=== PATIENT | male | born 1970 | race Caucasian/White ===

== ENCOUNTER 2023-08-25 08:37 | Outpatient (REF) | payer MEDICARE, BC, SELFPAY | END 2023-08-25 08:38 | disposition home or self-care (01) | LOC: NFLDREF 08:37 | PROVIDERS: Visit Provider Internal Medicine Addiction Medicine | DX: F11.90 Opioid use, unspecified, uncomplicated (principal) | CPT/HCPCS: 80306 ==

== ENCOUNTER 2023-10-16 19:54 | Inpatient (IN) | payer MEDICARE, BC, SELFPAY ==
[2023-10-16] VITALS (8 sets, daily range): BP systolic 144–171; BP diastolic 86–109; PULSE 92–120; RESP 18; TEMP 36.8–36.9; O2SAT 96–98; BMI 26.6; BMI 25.8
--- NOTE | 2023-10-16 20:11 | ED.GENADULT ---
HPI - General Adult General Time Seen by Provider: 20:11 Date Seen: 10/16/23 Chief complaint: Extremity Pain/Injury, Lower Stated complaint: L swollen knee Time Seen by Provider: 10/16/23 20:11 Source: patient and RN notes reviewed Mode of arrival: ambulatory Limitations: no limitations History of Present Illness HPI narrative: Patient is a very pleasant 53-year-old gentleman with history recently of diagnosis cellulitis left knee who comes to the emergency room for increasing redness and fever chills. Patient notes the onset of redness around his left knee extending on to the lower aspect of the medial distal thigh 4 days ago. Two days ago he was seen by urgent care at which time he was started on antibiotic. He notes that it now he has redness going toward his foot and up his thigh. He has had associated fever and chills but no vomiting. He has no past history of MRSA or diabetes or hard to treat infections. He has never had anything like this in the past. He notes that his calf hurts as well but has no history of DVT. Patient cannot recall any specific injury that may have caused this. Related Data Home Medications Medication Instructions Recorded Confirmed ibuprofen 800 mg tablet 800 mg PO PRN pain 09/23/22 10/14/23 lisinopril 20 mg tablet 20 mg PO 09/23/22 10/14/23 Previous Rx's Medication Instructions Recorded buprenorphine 12 mg-naloxone 3 mg 2 film sublingual DAILY #56 ea 08/25/23 sublingual film cephalexin 500 mg capsule 500 mg PO QID 10 days #40 caps 10/14/23 Allergies Allergy/AdvReac Type Severity Reaction Status Date / Time No Known Allergies Allergy Verified 10/14/23 17:02 Review of Systems Status of ROS: Reports: 10 or more systems reviewed and unremarkable except as noted in History and below Const: Reports: fever, chills and fatigue Resp: Denies: cough GI: Denies: abdominal pain, nausea or vomiting Endo: Reports: fatigue PFSH PFS Medical History Opioid use disorder ?F11.90 - Opioid use, unspecified, uncomplicated (ICD-10) Social History Smoking Status: Former smoker Do you use any of these nicotine containing products: None Second hand tobacco smoke exposure: No How often do you have a drink containing alcohol: never AUDIT-C Alcohol total score: 0 Non-prescribed substance use: denies use Exam Narrative: Exam Narrative: Alert and oriented nontoxic in appearance. Very pleasant gentleman in no acute distress. Heart with regular rate and rhythm and lungs are clear. Examination of the left leg shows well-demarcated erythema extending from the mid aspect of the medial thigh onto the anterior surface of the knee and down the lower leg to the ankle. There is tenderness in the popliteal fossa. There does appear to be circumferential erythema. There is no lymphadenopathy in the left groin. No fluctuance noted on the knee. Moving all extremities. Removal of the sock shows no unusual areas of injury on the foot. Const: Vital Signs, click to edit/add: Vital Signs - 24 hr 10/16/23 20:05 10/16/23 20:57 10/16/23 20:58 Temperature 98.4 F Pulse Rate 115 H 104 H Pulse Rate [Pulse Oximeter] 120 H Respiratory Rate 18 Blood Pressure 171/109 H Blood Pressure [Ri ght Upper Arm] 153/86 H Pulse Oximetry 97 97 98 Oxygen Delivery Me thod Room Air Room Air 10/16/23 21:00 10/16/23 21:01 10/16/23 21:31 Temperature Pulse Rate 103 H 104 H Pulse Rate [Pulse Oximeter] Respiratory Rate Blood Pressure 146/94 H 158/91 H Blood Pressure [Ri ght Upper Arm] Pulse Oximetry 98 98 Oxygen Delivery Me thod Documenting provider has reviewed patient's vital signs: yes Course Course ED Course: At this time differential diagnosis includes but is not limited to cellulitis, underlying abscess, septic joint, DVT. Will place IV and draw labs to include CBC, basic panel, lactate, blood culture, CRP. Will then administer vancomycin as well as Zosyn for treatment of cellulitis. Ultrasound of the lower extremity to rule out DVT has also been ordered. Given failed outpatient antibiotics as well as reports of fever, tachycardia will check lactate to ensure no evidence of sepsis. 1 L of normal saline will be given as well as Toradol for discomfort. Reevaluation(s) Reevaluation #1: White count has been returned at 21 K with a CRP this time pending. Lactate is normal at 1.4. Vital Signs Vital signs: Initial Vital Signs Temperature 98.4 F 10/16/23 20:05 Temperature Source Temporal Artery Scan 10/16/23 20:05 Pulse Rate 120 H 10/16/23 20:05 Respiratory Rate 18 10/16/23 20:05 Blood Pressure 153/86 H 10/16/23 20:05 Blood Pressure Mean 108 H 10/16/23 20:05 Blood Pressure Position Sitting 10/16/23 20:05 Pulse Oximetry 97 10/16/23 20:05 Oxygen Delivery Method Room Air 10/16/23 20:05 Vital Signs Temperature 98.4 F 10/16/23 20:05 Pulse Rate 120 H 10/16/23 20:05 Respiratory Rate 18 10/16/23 20:05 Blood Pressure 153/86 H 10/16/23 20:05 Pulse Oximetry 97 10/16/23 20:05 Oxygen Delivery Method Room Air 10/16/23 20:05 Temperature 98.4 F 10/16/23 20:05 Pulse Rate 104 H 10/16/23 21:01 Respiratory Rate 18 10/16/23 20:05 Blood Pressure 158/91 H 10/16/23 21:31 Pulse Oximetry 98 10/16/23 21:01 Oxygen Delivery Method Room Air 10/16/23 20:57 Medications Administered Medications: Discontinued Medications Generic Name Dose Route Start Last Admin Trade Name Freq PRN Reason Stop Dose Admin Sodium Chloride 1,000 mls @ 1,000 mls/hr 10/16/23 20:18 10/16/23 20:43 0.9 % Sodium Chloride 1000 Ml IV 10/16/23 21:17 1,000 mls/hr .Q1H ANAIS Administration Vancomycin HCl 1,500 mg/ 515 mls @ 257.5 mls/hr 10/16/23 21:01 10/16/23 21:54 Sodium Chloride IVPB 10/16/23 21:02 257.5 mls/hr ONCE ONE Administration Protocol Piperacillin Sod/Tazobactam 100 mls @ 200 mls/hr 10/16/23 21:10/16/23 21:50 Sod 3.375 gm/ Sodium Chloride IVPB 10/16/23 21:02 Infused ONCE ONE Infusion Ketorolac Tromethamine 15 mg 10/16/23 20:18 10/16/23 20:43 Ketorolac 15 Mg/Ml Inj IVP 10/16/23 20:19 15 mg ONCE ONE Administration Medical Decision Making MDM Narrative Medical decision making narrative: 1. Cellulitis-elevated white count at 21,000 with failed outpatient antibiotics. Patient will be admitted to the hospital. I have ordered a course of vancomycin as well as Zosyn. An ultrasound of the leg shows no evidence of an underlying DVT. 2. Leg pain-patient noted to have a history of narcotic abuse currently on Suboxone. Patient given Toradol. He seems much more comfortable. 3. Disposition-admission under the care of Dr. Welsh, hospitalist. Medical Records Medical records reviewed: Yes I reviewed the patient's medical records Lab Data Lab results reviewed: Yes I reviewed the patient's lab results Labs: Lab Results 10/16/23 Range/Units 20:30 WBC 21.31 H (4.50-11.00) K/uL RBC 4.52 (4.30-5.90) m/uL Hgb 12.4 L (13.5-17.5) gm/dL Hct 38.4 (37.0-53.0) % MCV 85 (80-100) fL MCH 27 (26-34) pg MCHC 32 (32-36) gm/dL RDW Coeff of Ruma 13.5 (11.5-15.5) % Plt Count 249 (140-440) K/uL Neut % (Auto) 87.3 H (42.0-72.0) % Lymph % (Auto) 5.2 L (20-44) % [place] % (Auto) 6.1 (0.0-11.0) % Eos % (Auto) 0.0 (0.0-7.0) % Baso % (Auto) 0.0 (0.0-3.0) % Neut # (Auto) 18.60 H (1.7-7.0) K/uL Lymph # (Auto) 1.10 (0.90-2.90) K/uL [place] # (Auto) 1.30 H (0.00-0.90) K/UL Eos # (Auto) 0.00 (0.00-0.50) K/uL Baso # (Auto) 0.00 (0.00-0.30) K/uL Abs Immat Gran (auto) 0.30 (0.00-0.30) K/uL Imm/Tot Granulo (auto) 1.4 % Sodium 137 (135-149) mmol/L Potassium 3.5 L (3.6-5.1) mmol/L Chloride 101 (96-114) mmol/L Carbon Dioxide 26 (20-32) mmol/L Anion Gap 10 (7-15) mEq/L BUN 15 (7-30) mg/dL Creatinine 0.9 (0.5-1.5) mg/dL Estimated Creat Clear 87.63 Estimated GFR 103 ml/min Glucose 141 H (60-115) mg/dL Lactate 1.4 (0.5-1.9) mmol/L Calcium 10.3 (8.4-10.6) mg/dL C-Reactive Protein 35.6 H (0.5-1.0) mg/dL Imaging Data Venous US: Attestation: I have reviewed the pertinent imaging results. Radiologist's impression: Common Femoral Vein: Fully compressible and demonstrates normal flow on color doppler imaging. Deep Femoral Profunda Vein: Fully compressible and demonstrates normal flow on color doppler imaging. Proximal Superficial Femoral Vein: Fully compressible and demonstrates normal flow on color doppler imaging. Mid Superficial Femoral Vein: Fully compressible and demonstrates normal flow on color doppler imaging. Distal Superficial Femoral Vein: Fully compressible and demonstrates normal flow on color doppler imaging. Popliteal Vein: Fully compressible and demonstrates normal flow on color doppler imaging. Lower Calf: The posterior tibial and peroneal veins are fully compressible and demonstrate normal flow on color doppler imaging. Superficial Vein: The greater saphenous vein is fully compressible. Popliteal Fossa: No popliteal cyst. IMPRESSION: Normal left lower extremity venous ultrasound. No deep vein thrombus. Discharge Plan Discharge Clinical Impression: Cellulitis Qualifiers: Site of cellulitis: extremity Site of cellulitis of extremity: lower extremity Laterality: left Qualified Code(s): L03.116 - Cellulitis of left lower limb Patient Disposition: Admitted As Observation
--- NOTE | 2023-10-16 20:18 | CRLHL7_ITS ---
For Patients: As a result of the Century Cures Act, medical imaging exams and procedure reports are released immediately into your electronic medical record. You may view this report before your referring provider. If you have questions, please contact your health care provider. INDICATION: Left leg pain and swelling. TECHNIQUE: Ultrasound venous duplex left lower extremity. Compression venous exam was performed using galindo-scale, color Doppler, and spectral Doppler analysis. COMPARISON: None. FINDINGS: RIGHT LOWER EXTREMITY: Common Femoral Vein: Fully compressible and demonstrates normal flow on color doppler imaging. LEFT LOWER EXTREMITY: Common Femoral Vein: Fully compressible and demonstrates normal flow on color doppler imaging. Deep Femoral Profunda Vein: Fully compressible and demonstrates normal flow on color doppler imaging. Proximal Superficial Femoral Vein: Fully compressible and demonstrates normal flow on color doppler imaging. Mid Superficial Femoral Vein: Fully compressible and demonstrates normal flow on color doppler imaging. Distal Superficial Femoral Vein: Fully compressible and demonstrates normal flow on color doppler imaging. Popliteal Vein: Fully compressible and demonstrates normal flow on color doppler imaging. Lower Calf: The posterior tibial and peroneal veins are fully compressible and demonstrate normal flow on color doppler imaging. Superficial Vein: The greater saphenous vein is fully compressible. Popliteal Fossa: No popliteal cyst. IMPRESSION: Normal left lower extremity venous ultrasound. No deep vein thrombus. Dictated by Yasmany Leon MD @ 10/16/2023 10:01:19 PM (Electronically Signed)
[2023-10-16] MEDS: KETOROLAC 15 MG/ML inj IVP (20:43)
[2023-10-16] MEDS: 0.9 % SODIUM CHLORIDE 1000 ml 1,000 ML IV (20:43)
[2023-10-16 20:59] LABS: Lactate* 1.4 mmol/L (0.5-1.9)
[2023-10-16 21:01] LABS: Hematocrit 38.4 % (37.0-53.0); Hemoglobin* 12.4 gm/dL (13.5-17.5); Immature Granulocytes Pct Auto 1.4 %; Lymphocytes Percent Auto 5.2 % (20-44); Mean Corpuscular HGB Conc 32 gm/dL (32-36); Mean Corpuscular Hemoglobin 27 pg (26-34); Mean Corpuscular Volume 85 fL (80-100); Monocytes Percent Auto 6.1 % (0.0-11.0); Neutrophils Percent Auto 87.3 % (42.0-72.0); Platelet Count* 249 K/uL (140-440); RDW Coefficient of Variation % 13.5 % (11.5-15.5); Red Blood Count 4.52 m/uL (4.30-5.90); White Blood Count* 21.31 K/uL (4.50-11.00)
[2023-10-16 21:06] LABS: Slide Review Reflex No
[2023-10-16 21:14] LABS: Chloride* 101 mmol/L (96-114); Potassium* 3.5 mmol/L (3.6-5.1); Sodium* 137 mmol/L (135-149)
[2023-10-16] MEDS: PIPERACILLIN/TAZOBACTAM 3.375 GM in 0.9 % SODIUM CHLORIDE Mini-bag 100 ML IVPB (21:16)
[2023-10-16 21:17] LABS: Creatinine* 0.9 mg/dL (0.5-1.5); Est. Creatinine Clearance* 87.63; Estimated Glomerular Filt Rate 103 ml/min
[2023-10-16 21:18] LABS: Anion Gap 10 mEq/L (7-15); Blood Urea Nitrogen* 15 mg/dL (7-30); Calcium* 10.3 mg/dL (8.4-10.6); Carbon Dioxide* 26 mmol/L (20-32); Glucose* 141 mg/dL (60-115)
[2023-10-16 21:53] LABS: C Reactive Protein* 35.6 mg/dL (0.5-1.0)
--- NOTE | 2023-10-16 22:16 | PM.IMHP1 ---
Hospitalist- H&P: HPI History of Present Illness Date Seen: 10/16/23 Chief complaint: L swollen knee Narrative: Darrius Devlin JR is a 53 year old man who is generally healthy. Known to have opioid use disorder in sustained remission on buprenorphine medications, for which he follows with Dr. Kd Whiting, addiction medicine specialist. Also has hypertension which is generally well controlled. This past Friday, about 5 days ago, patient woke up in the morning feeling relatively well. Sometime in the morning he kneeled down on the floor and he felt a discomfort in his left knee. He lifted up his pant legs to examine and noticed his left knee medial aspect was red swollen and painful. Ten think much of it. Did not recall trauma or injury. On Friday it seemed to worsen. By Friday it was much worse and thus he presented to the urgent care for assessment. Found to have a cellulitis and started on oral cephalexin. It did not seem to improve much on Friday of this week, yesterday. During the night the pain seemed to get worse and thus he made the decision to come in today for further assessment. Throughout this time the pain worsened, the extensiveness of the redness increased substantially since Friday when it was still mainly about the knee but by today he noticed it all the way down his leg and up his thigh. Today the area is increasingly warm to touch. Tender to touch around the tibial plateau in particular. Has felt feverish but has not taking his temperature at home. Review of Systems Status of ROS: Reports: 10 or more systems reviewed and unremarkable except as noted in History and below [facility] Medical History Essential hypertension ?I10 - Essential (primary) hypertension (ICD-10) Opioid use disorder ?F11.90 - Opioid use, unspecified, uncomplicated (ICD-10) Social History Smoking Status: Former smoker Do you use any of these nicotine containing products: None Second hand tobacco smoke exposure: No How often do you have a drink containing alcohol: never AUDIT-C Alcohol total score: 0 Non-prescribed substance use: denies use Meds Home Medications and Allergies Home Medications Medication Instructions Recorded Confirmed Type ibuprofen 800 mg tablet 800 mg PO PRN pain 09/23/22 10/14/23 History lisinopril 20 mg tablet 20 mg PO 09/23/22 10/14/23 History Allergies Allergy/AdvReac Type Severity Reaction Status Date / Time No Known Allergies Allergy Verified 10/14/23 17:02 Exam Narrative: Exam Narrative: Examined patient the emergency department. Laying on the exam table he appears comfortable and in no acute distress. Vision and hearing are grossly normal. Alert and oriented to self, place, time, situation. Friendly, articulate, cooperative. Number tympanic membranes and external auditory canals bilaterally. Midline nasal septum. Oropharynx benign. Dentition fair repair. Conjugate gaze. No icterus. Pupils equally round react to light and accommodation. No head neck lymphadenopathy. Neck is supple. Lungs are clear to auscultation without wheezing, rhonchi, or rales. Chest wall excursions are full. No CVA tenderness. Heart tones with regular rhythm but tachycardic, normal S1-S2, without murmur, gallop, rub. PMI not laterally displaced. Abdomen with active bowel sounds, soft, nontender. No rebound or guarding. No organomegaly or masses. Moves all 4 extremities. No focal neurologic deficits. Right leg skin is benign. On the left he has any erythema extending from just above the ankle all the way up to the medial aspect of the midportion of thigh. Skin is warm to touch. Swelling. Warm to touch particularly around the knee the tibial plateau area of the knee. White count elevated. C-reactive protein elevated at 35. Const: Vital Signs, click to edit/add: Vital Signs - 24 hr 10/16/23 20:05 10/16/23 20:57 10/16/23 20:58 Temperature 98.4 F Pulse Rate 115 H 104 H Pulse Rate [Pulse Oximeter] 120 H Respiratory Rate 18 Blood Pressure 171/109 H Blood Pressure [Ri ght Upper Arm] 153/86 H Pulse Oximetry 97 97 98 Oxygen Delivery Me thod Room Air Room Air 10/16/23 21:00 10/16/23 21:01 10/16/23 21:31 Temperature Pulse Rate 103 H 104 H Pulse Rate [Pulse Oximeter] Respiratory Rate Blood Pressure 146/94 H 158/91 H Blood Pressure [Ri ght Upper Arm] Pulse Oximetry 98 98 Oxygen Delivery Me thod Documenting provider has reviewed patient's vital signs: yes Hospitalist - H&P: Result Labs Labs: Short CBC 10/16/23 Range/Units 20:30 WBC 21.31 H (4.50-11.00) K/uL Hgb 12.4 L (13.5-17.5) gm/dL Hct 38.4 (37.0-53.0) % Plt Count 249 (140-440) K/uL BMP 10/16/23 20:30 Sodium 137 Potassium 3.5 L Chloride 101 Carbon Dioxide 26 BUN 15 Creatinine 0.9 Glucose 141 H Calcium 10.3 Imaging Venous US: Radiologist's impression: No DVT and affected left lower extremity. Assessment and Plan Assessment and plan (1) Cellulitis of left knee: Problem comment: - filled outpatient oral treatment efforts - given his sustained tachycardia, will treat with vancomycin 15 milligrams/kilogram IV twice daily and ask pharmacy to help dose - check nasal MRSA - monitor labs including CBC, basic metabolic panel, CRP Status: Acute (2) Left knee pain: Problem comment: - treat the cellulitis - scheduled acetaminophen 650 mg p.o. q.i.d. - ibuprofen 600 mg p.o. q.6 hours p.r.n. - continue on Suboxone therapy Status: Acute (3) Opioid use disorder: Problem comment: - Continue on buprenorphine therapy Status: Acute (4) Essential hypertension: Problem comment: - continue with lisinopril 20 mg once daily Status: Acute Plan 1. Reviewed impression with patient 2. Reviewed above plans and recommendations with patient 3. Patient agreeable with above stated plans and recommendations
[2023-10-16] MEDS: POTASSIUM BICARB 25 MEQ EFFERVESCENT TAB PO (23:03)
--- NOTE | 2023-10-16 23:41 | PC.NURSE ---
Nsg admission note: Pt arrived to the floor room #257 at 2220. Pt is A&O, ambulatory and afebrile. VSS with exception to elevated HR. TELE applied showing ST. Pt denies any nausea or lightheadedness. He reports 5/10 pain in LLE. LLE is notable warmer to the touch than RLE, erythematous and swollen. Area of concern outlined to monitor erythema. PIV in left AC SL and C/D/I. New 20g placed in right hand for IV abx instillation. Pt is independent in his room. Last BM 10/16 and voids without issue.
[2023-10-17] VITALS (10 sets, daily range): BP systolic 107–119; BP diastolic 59–77; PULSE 77–94; RESP 16–18; TEMP 36.7–37.2; O2SAT 96–98
[2023-10-17] MEDS: ACETAMINOPHEN 325 MG TABLET 650 MG PO ×5 (00:10→21:07)
--- NOTE | 2023-10-17 05:18 | PC.NURSE ---
[id number] Pt rested well throughout night, LLE red and warm to touch, stayed within outline. Pt tolerating PO intake, max temp of 99.0
[2023-10-17 06:14] LABS: Lactate* 0.8 mmol/L (0.5-1.9)
[2023-10-17 06:22] LABS: Hematocrit 34.2 % (37.0-53.0); Hemoglobin* 11.1 gm/dL (13.5-17.5); Mean Corpuscular HGB Conc 33 gm/dL (32-36); Mean Corpuscular Hemoglobin 28 pg (26-34); Mean Corpuscular Volume 85 fL (80-100); Platelet Count* 233 K/uL (140-440); Red Blood Count 4.03 m/uL (4.30-5.90); White Blood Count* 14.79 K/uL (4.50-11.00)
[2023-10-17 06:24] LABS: Slide Review Reflex No
[2023-10-17 06:33] LABS: Chloride* 108 mmol/L (96-114); Sodium* 138 mmol/L (135-149)
[2023-10-17 06:34] LABS: Potassium* 3.7 mmol/L (3.6-5.1)
[2023-10-17 06:36] LABS: Creatinine* 0.9 mg/dL (0.5-1.5); Est. Creatinine Clearance* 87.63; Estimated Glomerular Filt Rate 103 ml/min
[2023-10-17 06:37] LABS: Anion Gap 5 mEq/L (7-15); Blood Urea Nitrogen* 13 mg/dL (7-30); Calcium* 8.7 mg/dL (8.4-10.6); Carbon Dioxide* 25 mmol/L (20-32); Glucose* 108 mg/dL (60-115)
--- NOTE | 2023-10-17 08:21 | PM.IMPN1 ---
Progress Note: A&P Assessment and plan (1) Cellulitis of left knee: Problem details: - filled outpatient oral treatment efforts - on Vancomycin (10/16) - check nasal MRSA (pending on 10/17) Status: Acute (2) Left knee pain: Problem details: - treat the cellulitis - scheduled acetaminophen 650mg QID - ibuprofen 600mg Q6H prn - continue on Suboxone therapy Status: Acute (3) Opioid use disorder: Problem details: - Continue on buprenorphine therapy Status: Acute (4) Essential hypertension: Problem details: - continue with lisinopril 20 mg once daily Status: Acute Plan - per above - Lovenox for ppx - home when medically stable/improving, likely 1-2 more days Subjective Date Seen: 10/17/23 Interval history: Darrius was admitted to the hospital last night for RLE cellulitis, failed outpatient therapy with Cephalexin. Vancomycin was initiated for initial IV therapy, u/s negative for DVT. This morning, he is still having discomfort with flexion/extension of R knee, no fevers. VS remain stable, WBC has decreased from 21 --> 14. MRSA screen pending. Exam Narrative: Exam Narrative: GEN: Alert and oriented, nontoxic in appearance HEENT: EOMIs bilaterally, no scleral icterus CV: RRR, soft systolic murmur without concerning features R: LCTA bilaterally without concerning wheezing, air movement adequate Ext: wwp, no pretibial edema Skin: Erythema of RLE has improved and remained within outlined region, area is still warm Neuro: No focal deficits Psych: Appropriate Const: Vital Signs, click to edit/add: Vital Signs - 24 hr 10/16/23 20:05 10/16/23 20:57 10/16/23 20:58 Temperature 98.4 F Pulse Rate 115 H 104 H Pulse Rate [Left P ulse Oximeter] Pulse Rate [Pulse Oximeter] 120 H Respiratory Rate 18 Blood Pressure 171/109 H Blood Pressure [Ri ght Arm] Blood Pressure [Ri ght Upper Arm] 153/86 H Pulse Oximetry 97 97 98 Oxygen Delivery Me thod Room Air Room Air 10/16/23 21:00 10/16/23 21:01 10/16/23 21:31 Temperature Pulse Rate 103 H 104 H Pulse Rate [Left P ulse Oximeter] Pulse Rate [Pulse Oximeter] Respiratory Rate Blood Pressure 146/94 H 158/91 H Blood Pressure [Ri ght Arm] Blood Pressure [Ri ght Upper Arm] Pulse Oximetry 98 98 Oxygen Delivery Me thod 10/16/23 23:06 10/16/23 23:06 10/16/23 23:10 Temperature 98.3 F Pulse Rate 92 Pulse Rate [Left P ulse Oximeter] 118 H Pulse Rate [Pulse Oximeter] Respiratory Rate 18 18 Blood Pressure Blood Pressure [Ri ght Arm] 144/88 H Blood Pressure [Ri ght Upper Arm] Pulse Oximetry 96 98 Oxygen Delivery Me thod Room Air Room Air 10/17/23 02:59 Temperature 99.0 F Pulse Rate Pulse Rate [Left P ulse Oximeter] 94 Pulse Rate [Pulse Oximeter] Respiratory Rate 18 Blood Pressure Blood Pressure [Ri ght Arm] 119/77 Blood Pressure [Ri ght Upper Arm] Pulse Oximetry 97 Oxygen Delivery Me thod Room Air Labs Labs: Laboratory Results - last 24 hr 10/16/23 10/17/23 20:30 06:04 WBC 21.31 H 14.79 H RBC 4.52 4.03 L Hgb 12.4 L 11.1 L Hct 38.4 34.2 L MCV 85 85 MCH 27 28 MCHC 32 33 RDW Coeff of Ruma 13.5 Plt Count 249 233 Neut % (Auto) 87.3 H Lymph % (Auto) 5.2 L [place] % (Auto) 6.1 Eos % (Auto) 0.0 Baso % (Auto) 0.0 Neut # (Auto) 18.60 H Lymph # (Auto) 1.10 [place] # (Auto) 1.30 H Eos # (Auto) 0.00 Baso # (Auto) 0.00 Abs Immat Gran (auto) 0.30 Imm/Tot Granulo (auto) 1.4 Sodium 137 138 Potassium 3.5 L 3.7 Chloride 101 108 Carbon Dioxide 26 25 Anion Gap 10 5 L BUN 15 13 Creatinine 0.9 0.9 Estimated Creat Clear 87.63 87.63 Estimated GFR 103 103 Glucose 141 H 108 Lactate 1.4 0.8 Calcium 10.3 8.7 C-Reactive Protein 35.6 H 31.0 H
[2023-10-17] MEDS: lisinopriL 20 MG TABLET PO (09:00)
[2023-10-17] MEDS: SODIUM CHLORIDE 0.9 % (FLUSH) 10 ML SYRINGE 5 ML IVF ×2 (10:00→21:08)
--- NOTE | 2023-10-17 14:29 | NUTR.NU ---
Heart healthy diet education provided. Pt states he knows what he has to do. Has used his salt shaker a lot and consumes 6 cans Mountain Dew/day. Discussed limiting saturated fat and sodium intake. Pt not able to outline plan for making changes. States he will just stop using his salt shaker and will cut back on his Mountain Dew. Pt acknowledges it will be difficult to cut out the Mountain Dew. Options for gradual decrease or substitutions with other caffeine sources (coffee, tea, other pop) to make transition to less Mountain Dew (his goal). Handouts provided to support discussion. RDN contact information provided and encouraged patient to call with questions. RDN to follow up as needed.
--- NOTE | 2023-10-17 14:51 | PC.NURSE ---
Nursing Care Hours: [id number] Pt this shift calm and cooperative with cares, reduced interactions and activity. C/o pain 12/23, treated per eMAR. Redness staying with in outlined boarder of L leg. AURA's applied, tolerating well. VSS. Tele NSR, dc'd. Up independently in room. Declined breakfast. ABX infused. L AC IV removed per pt request d/t tenderness. R hand IV patent and asymptomatic.
[2023-10-17] MEDS: ENOXAPARIN 40 MG/0.4 ML INJ SUBCUT (21:06)
[2023-10-18 02:12] VITALS: BP 130/75; PULSE 89; RESP 16; TEMP 37; O2SAT 95
--- NOTE | 2023-10-18 04:13 | PC.NURSE ---
Pt rested well this night. Pain controlled and tolerated with scheduled Tylenol. Afebrile. Vs unremarkable. Up IND in room.
[2023-10-18 06:18] LABS: Basophils Percent Auto 0.3 % (0.0-3.0); Hematocrit 32.1 % (37.0-53.0); Hemoglobin* 10.3 gm/dL (13.5-17.5); Immature Granulocytes Pct Auto 0.3 %; Lymphocytes Percent Auto 21.4 % (20-44); Mean Corpuscular HGB Conc 32 gm/dL (32-36); Mean Corpuscular Hemoglobin 28 pg (26-34); Mean Corpuscular Volume 86 fL (80-100); Monocytes Percent Auto 7.8 % (0.0-11.0); Neutrophils Percent Auto 69.2 % (42.0-72.0); Platelet Count* 221 K/uL (140-440); RDW Coefficient of Variation % 14.1 % (11.5-15.5); Red Blood Count 3.74 m/uL (4.30-5.90); White Blood Count* 11.98 K/uL (4.50-11.00)
[2023-10-18 06:34] LABS: Chloride* 106 mmol/L (96-114); Potassium* 3.8 mmol/L (3.6-5.1); Sodium* 137 mmol/L (135-149)
[2023-10-18 06:36] LABS: Bilirubin Total* 0.3 mg/dL (0.1-1.5); Creatinine* 0.8 mg/dL (0.5-1.5); Est. Creatinine Clearance* 98.58; Estimated Glomerular Filt Rate 107 ml/min
[2023-10-18 06:37] LABS: Alanine Aminotransferase* 21 U/L (4-50); Alkaline Phosphatase* 114 U/L (40-150); Anion Gap 8 mEq/L (7-15); Blood Urea Nitrogen* 9 mg/dL (7-30); Carbon Dioxide* 23 mmol/L (20-32); Glucose* 111 mg/dL (60-115); Total Protein* 6.4 g/dL (6.0-8.3)
[2023-10-18 06:38] LABS: Calcium* 8.1 mg/dL (8.4-10.6)
[2023-10-18 06:43] LABS: Slide Review Reflex No
[2023-10-18 06:46] LABS: Aspartate Amino Transferase* 28 U/L (12-35)
[2023-10-18 06:56] LABS: C Reactive Protein* 26.2 mg/dL (0.5-1.0)
[2023-10-18 08:43] VITALS: BP 126/76; PULSE 85; RESP 16; TEMP 37; O2SAT 95
[2023-10-18] MEDS: lisinopriL 20 MG TABLET PO (08:44)
[2023-10-18] MEDS: ACETAMINOPHEN 325 MG TABLET 650 MG PO ×4 (08:44→20:45)
[2023-10-18 11:40] VITALS: BP 127/65; PULSE 74; RESP 16; TEMP 36.9; O2SAT 96
[2023-10-18] MEDS: SODIUM CHLORIDE 0.9 % (FLUSH) 10 ML SYRINGE 5 ML IVF ×2 (11:58→19:24)
[2023-10-18] MEDS: BUPRENORPHINE-NALOX 8-2MG FILM 1 EACH SUBLINGUAL (11:58)
[2023-10-18] MEDS: CEFAZOLIN 2 GM in 0.9 % SODIUM CHLORIDE Mini-bag 100 ML IVPB ×2 (11:58→19:22)
--- NOTE | 2023-10-18 13:01 | PM.IMPN1 ---
Progress Note: A&P Assessment and plan (1) Cellulitis of left knee: Problem details: - had gotten 5 doses of oral cephalexin prior to his admission. - has been on Vancomycin since 10/16. - nasal MRSA swab negative from 10/16, blood cultures x2 from 10/16 have no growth so far. - 2 left knee appears to be improving. I am not seeing signs of involvement of the knee joint. He has no history of injury or hardware in this knee. Vitals have improved, sepsis has resolved. CRP and white count are improving. Transition to IV Ancef for trial of cephalosporin since MRSA swab is negative. If the patient continues to improve, likely discharge home on oral cephalexin. Status: Acute (2) Left knee pain: Problem details: - treat the cellulitis - scheduled acetaminophen 650mg QID - ibuprofen 600mg Q6H prn - continue on Suboxone therapy Status: Acute (3) Opioid use disorder: Problem details: - Continue on buprenorphine therapy - Darrius has his last dose that he brought with him from home. I discussed this with the patient and the pharmacist today. 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 Our pharmacist does have buprenorphine, that we can dispense if he is unable to have a friend or family member bring his from his local pharmacy. Status: Chronic (4) Essential hypertension: Problem details: - continue with lisinopril 20 mg once daily Status: Chronic Plan - per above - Lovenox and Ming's hose for ppx - home when medically stable/improving, likely 1-2 more days. Subjective Time Seen by Provider: 09:30 Date Seen: 10/18/23 Interval history: Manas at first is concerned because he feels that he is no better and doesn't know what the plan of care is. He said his pain and swelling are a little better than admission and he has noted the redness is getting better. He also said that on admission, he was very sick with a fast heart and seeing double, which have both resolved. He denies any history of injury, surgery, or hardware in his knee. He called his friend and boss, Rui, and put him on speaker phone so that we could all talk together. Darrius and I reviewed that Darrius started feeling ill Friday into Friday and got worse on Friday, which brought him to the ER. He was prescribed keflex, of which he took 1 dose on Friday evening, and then continued taking 3 doses on Friday and 1 dose morning. On morning he decided he was even more ill and went to the ER again. At that time he was admitted and started on vancomycin. He has since had a MRSA swab of his nares which was negative. Rui remembered that Darrius had recently had a ?deep cleaning of his teeth? twice recently, including 1 just a week before this infection started. I noted out loud to Darrius and Rui that I see the lines drawn around the edge of the infection, and Darrius confirmed that these were drawn on admission a few days ago. I noted out loud that erythema has receded from there, and Darrius agreed. We reviewed that the venous Doppler ultrasound of his left lower extremity from 10/16/2023 was negative for DVT. We discussed antibiotic choices and treatment of strep and staph infections of the skin. We also discussed MRSA. Darrius and Rui were comfortable with a trial of an IV cephalosporin overnight since the MRSA swab of the nares was negative. I explained that I think he did not actually fail outpatient antibiotics and that it would be worth another try since he only had just over 24 hours of an oral antibiotic prior to admission. I answered all of Darrius's and Rui's questions. Exam Narrative: Exam Narrative: General: No acute distress. Awake, alert, oriented x3. No pallor. No jaundice. Oropharynx: Clear. Mucous membranes moist. Cardiovascular: Regular rate and rhythm. No murmurs, gallops, or rubs. Respiratory: Clear to auscultation bilaterally. No wheezes or crackles. Abdomen: Bowel sounds present. Soft, nondistended, nontender. Extremities: Left lower extremity erythema has receded from the lines drawn, there is an area on the superior medial aspect of the knee that is more erythematous and edematous than the for surrounding areas. There is mild warmth to this area. No fluctuance. The knee is nontender to palpation and movement. Good range of motion of the knee. Left lower extremity is more edematous than the right lower extremity. There are no open sores or drainage. Const: Vital Signs, click to edit/add: Vital Signs - 24 hr 10/17/23 16:38 10/17/23 16:38 10/17/23 19:21 Temperature 98.0 F 98.6 F Pulse Rate [Left P ulse Oximeter] 77 78 Respiratory Rate 16 16 Blood Pressure [Le ft Arm] 110/66 119/74 Pulse Oximetry 97 97 98 Oxygen Delivery Me thod Room Air Room Air Room Air 10/17/23 21:07 10/17/23 23:02 10/17/23 23:03 Temperature 98.6 F 98.6 F Pulse Rate [Left P ulse Oximeter] 78 78 Respiratory Rate 16 16 Blood Pressure [Le ft Arm] 119/67 Pulse Oximetry 97 Oxygen Delivery Me thod Room Air 10/17/23 23:03 10/17/23 23:33 10/18/23 02:12 Temperature 98.6 F 98.6 F Pulse Rate [Left P ulse Oximeter] 89 Respiratory Rate 16 16 Blood Pressure [Le ft Arm] 130/75 Pulse Oximetry 97 95 Oxygen Delivery Me thod Room Air Room Air 10/18/23 08:43 10/18/23 08:43 10/18/23 11:40 Temperature 98.6 F 98.5 F Pulse Rate [Left P ulse Oximeter] 85 74 Respiratory Rate 16 16 Blood Pressure [Le ft Arm] 126/76 127/65 Pulse Oximetry 95 95 96 Oxygen Delivery Me thod Room Air Room Air Room Air Labs Labs: Laboratory Results - last 24 hr 10/18/23 05:46 WBC 11.98 H RBC 3.74 L Hgb 10.3 L Hct 32.1 L MCV 86 MCH 28 MCHC 32 RDW Coeff of Ruma 14.1 Plt Count 221 Neut % (Auto) 69.2 Lymph % (Auto) 21.4 [place] % (Auto) 7.8 Eos % (Auto) 1.0 Baso % (Auto) 0.3 Neut # (Auto) 8.30 H Lymph # (Auto) 2.60 [place] # (Auto) 0.90 Eos # (Auto) 0.10 Baso # (Auto) 0.00 Abs Immat Gran (auto) 0.00 Imm/Tot Granulo (auto) 0.3 Sodium 137 Potassium 3.8 Chloride 106 Carbon Dioxide 23 Anion Gap 8 BUN 9 Creatinine 0.8 Estimated Creat Clear 98.58 Estimated GFR 107 Glucose 111 Calcium 8.1 L Total Bilirubin 0.3 AST 28 ALT 21 Alkaline Phosphatase 114 C-Reactive Protein 26.2 H Total Protein 6.4 Albumin 3.0 L
[2023-10-18 15:51] VITALS: BP 133/81; PULSE 92; RESP 18; TEMP 36.7; O2SAT 97
[2023-10-18 19:00] VITALS: BP 151/84; PULSE 92; RESP 18; TEMP 37.2; O2SAT 98
[2023-10-18] MEDS: ENOXAPARIN 40 MG/0.4 ML INJ SUBCUT (20:45)
[2023-10-18 23:00] VITALS: BP 156/88; PULSE 82; RESP 18; TEMP 37.3; O2SAT 97
[2023-10-19 03:00] VITALS: BP 146/84; PULSE 90; RESP 18; TEMP 37.2; O2SAT 96
[2023-10-19] MEDS: CEFAZOLIN 2 GM in 0.9 % SODIUM CHLORIDE Mini-bag 100 ML IVPB (03:08)
[2023-10-19] MEDS: IBUPROFEN 600 MG TABLET PO (05:10)
--- NOTE | 2023-10-19 05:16 | PC.NURSE ---
Shift note: Patient's condition is stable. Redness to the left knee is subsiding. Complained of pain of 6/10 and Ibuprofen 600mg was given. Pt had shower tonight, preferred bed built-in scale to the standing scale. Pt said standing and walking make pain worse.
[2023-10-19 06:27] LABS: Hematocrit 33.3 % (37.0-53.0); Hemoglobin* 10.7 gm/dL (13.5-17.5); Mean Corpuscular HGB Conc 32 gm/dL (32-36); Mean Corpuscular Hemoglobin 27 pg (26-34); Mean Corpuscular Volume 85 fL (80-100); Platelet Count* 251 K/uL (140-440)
[2023-10-19 06:28] LABS: Slide Review Reflex No
[2023-10-19 06:42] LABS: Chloride* 104 mmol/L (96-114); Sodium* 137 mmol/L (135-149)
[2023-10-19 06:43] LABS: Potassium* 3.3 mmol/L (3.6-5.1)
[2023-10-19 06:45] LABS: Creatinine* 0.7 mg/dL (0.5-1.5); Est. Creatinine Clearance* 112.66; Estimated Glomerular Filt Rate 112 ml/min
[2023-10-19 06:46] LABS: Blood Urea Nitrogen* 9 mg/dL (7-30); Calcium* 8.2 mg/dL (8.4-10.6); Carbon Dioxide* 24 mmol/L (20-32); Glucose* 109 mg/dL (60-115)
[2023-10-19 06:48] LABS: Anion Gap 9 mEq/L (7-15)
[2023-10-19 07:08] LABS: C Reactive Protein* 21.6 mg/dL (0.5-1.0)
[2023-10-19 08:32] VITALS: BP 125/75; PULSE 66; RESP 16; TEMP 36.7; O2SAT 96
[2023-10-19] MEDS: lisinopriL 20 MG TABLET PO (08:34)
[2023-10-19] MEDS: ACETAMINOPHEN 325 MG TABLET 650 MG PO (08:34)
[2023-10-19] MEDS: POTASSIUM BICARB 25 MEQ EFFERVESCENT TAB PO ×2 (08:34→11:50)
[2023-10-19] MEDS: SODIUM CHLORIDE 0.9 % (FLUSH) 10 ML SYRINGE 5 ML IVF (08:35)
--- NOTE | 2023-10-19 11:34 | P.DS_ITS ---
DS: Providers Provider Time Seen by Provider: 11:10 Date Seen: 10/19/23 Date of admission: 10/16/23 23:10 Primary care physician: Jesus Manuel Ferraro MD Admitting Clinician: Mp Don MD Attending Physician on discharge: Genna Okeefe MD Date of Discharge: 10/19/23 DS: Diagnosis Discharge Diagnosis (1) Cellulitis of left knee: Status: Acute Problem details: - had gotten 5 doses of oral cephalexin prior to his admission. - has been on Vancomycin since 10/16. - nasal MRSA swab negative from 10/16, blood cultures x2 from 10/16 have no growth so far. - 2/3 left knee appears to be improving. I am not seeing signs of involvement of the knee joint. He has no history of injury or hardware in this knee. Vitals have improved, sepsis has resolved. CRP and white count are improving. Transition to IV Ancef for trial of cephalosporin since MRSA swab is negative. If the patient continues to improve, likely discharge home on oral cephalexin. - 2/ left knee was warm and red this morning at 07:30, but he was very warm and sweaty from being under the blankets when I woke him up this morning. I went back at 11:10 to reassess and erythema was much improved from yesterday. Edema is also improving now. He feels better and desires homegoing today. (2) Left knee pain: Status: Acute Problem details: - treat the cellulitis - scheduled acetaminophen 650mg QID - ibuprofen 600mg Q6H prn - continue on Suboxone therapy (3) Drug abuse, opioid type: Status: Chronic (4) Essential hypertension: Status: Chronic Problem details: - continue with lisinopril 20 mg once daily (5) Opioid use disorder: Status: Chronic Problem details: - Continue on buprenorphine therapy DS: Summary Hospital Course Hospital Course: From H&P: Darrius Devlin JR is a 53 year old man who is generally healthy. Known to have opioid use disorder in sustained remission on buprenorphine medications, for which he follows with Dr. Kd Whiting, addiction medicine specialist. Also has hypertension which is generally well controlled. This past Friday, about 5 days ago, patient woke up in the morning feeling relatively well. Sometime in the morning he kneeled down on the floor and he felt a discomfort in his left knee. He lifted up his pant legs to examine and noticed his left knee medial aspect was red swollen and painful. Ten think much of it. Did not recall trauma or injury. On Friday it seemed to worsen. By Friday it was much worse and thus he presented to the urgent care for assessment. Found to have a cellulitis and started on oral cephalexin. It did not seem to improve much on Friday of this week, yesterday. During the night the pain seemed to get worse and thus he made the decision to come in today for further assessment. Throughout this time the pain worsened, the extensiveness of the redness increased substantially since Friday when it was still mainly about the knee but by today he noticed it all the way down his leg and up his thigh. Today the area is increasingly warm to touch. Tender to touch around the tibial plateau in particular. Has felt feverish but has not taking his temperature at home. He was admitted on Vancomycin IV and had improvement in erythema, WBC, and CRP. Nasal swab for MRSA was negative. He was transitioned to ancef yesterday morning and continued to improve with noticeable improvement in erythema and swelling of left knee on today's exam. He is discharged home today to continue oral cephalexin and f/u with Dr. Ferraro early this week. We discussed possible inciting factors and it is unclear why he developed this, however he has had several deep teeth cleanings recently. It is unclear if that's related. I have asked him to discuss this with Dr. Ferraro to make a shared decision about prophylactic antibiotics for dental visits. Time Spent with Patient Time attestation: Total time spent providing and/or coordinating discharge services: Exam Narrative: Exam Narrative: General: No acute distress. Awake, alert, oriented. No pallor. No jaundice. Cardiovascular: Regular rate and rhythm. No murmurs, gallops, or rubs. Respiratory: Clear to auscultation bilaterally. No wheezes or crackles. Abdomen: Bowel sounds present. Soft, nondistended, nontender. Extremities: Left lower extremity erythema has receded from the lines drawn, amd the area on the superior medial aspect of the knee that was erythematous yesterday is much improved today. Edema is also improving. The area remains warm to the touch.. No fluctuance. The knee is nontender to palpation and movement. Const: Vital Signs, click to edit/add: Vital Signs - 24 hr 10/18/23 11:40 10/18/23 15:51 10/18/23 15:51 Temperature 98.5 F 98.1 F Pulse Rate [Left P ulse Oximeter] 74 92 Respiratory Rate 16 18 Blood Pressure [Le ft Arm] 127/65 133/81 Pulse Oximetry 96 97 97 Oxygen Delivery Me thod Room Air Room Air Room Air 10/18/23 19:00 10/18/23 23:00 10/18/23 23:00 Temperature 98.9 F 99.2 F Pulse Rate [Left P ulse Oximeter] 92 82 Respiratory Rate 18 18 18 Blood Pressure [Le ft Arm] 151/84 H 156/88 H Pulse Oximetry 98 97 97 Oxygen Delivery Me thod Room Air Room Air Room Air 10/19/23 03:00 10/19/23 08:32 10/19/23 08:32 Temperature 99 F 98.1 F Pulse Rate [Left P ulse Oximeter] 90 66 Respiratory Rate 18 16 Blood Pressure [Le ft Arm] 146/84 H 125/75 Pulse Oximetry 96 96 96 Oxygen Delivery Me thod Room Air Room Air Room Air DS: Data Data Completed and Pending Completed studies during hospitalization: 10/17/2023 EKG: Normal sinus rhythm, 83 beats per minute, normal EKG. Ordering Physician: Seble English APRN Date of Service: 10/14/23 Procedure(s): XR knee LT 3V Accession Number(s): [id number] cc: Seble English APRN; Provider,Not a Local~ For Patients: As a result of the Cures Act, medical imaging exams and procedure reports are released immediately into your electronic medical record. You may view this report before your referring provider. If you have questions, please contact your health care provider. Indication: Trauma. Technique: Left knee, 3 views. Comparison: None. Findings/Impression: Bones: Alignment is normal. No displaced fractures or bone lesions. Joint spaces: Unremarkable. Soft tissues: Unremarkable. Dictated by Filipe Butler MD @ 10/14/2023 6:55:12 PM (Electronically Signed) Ordering Physician: Salina Russo M.D. Date of Service: 10/16/23 Procedure(s): US venous LE LT Accession Number(s): [id number] cc: Salina Russo M.D.; Jesus Manuel Ferraro M.D.~ For Patients: As a result of the 21st Century Cures Act, medical imaging exams and procedure reports are released immediately into your electronic medical record. You may view this report before your referring provider. If you have questions, please contact your health care provider. INDICATION: Left leg pain and swelling. TECHNIQUE: Ultrasound venous duplex left lower extremity. Compression venous exam was performed using galindo-scale, color Doppler, and spectral Doppler analysis. COMPARISON: None. FINDINGS: RIGHT LOWER EXTREMITY: Common Femoral Vein: Fully compressible and demonstrates normal flow on color doppler imaging. LEFT LOWER EXTREMITY: Common Femoral Vein: Fully compressible and demonstrates normal flow on color doppler imaging. Deep Femoral Profunda Vein: Fully compressible and demonstrates normal flow on color doppler imaging. Proximal Superficial Femoral Vein: Fully compressible and demonstrates normal flow on color doppler imaging. Mid Superficial Femoral Vein: Fully compressible and demonstrates normal flow on color doppler imaging. Distal Superficial Femoral Vein: Fully compressible and demonstrates normal flow on color doppler imaging. Popliteal Vein: Fully compressible and demonstrates normal flow on color doppler imaging. Lower Calf: The posterior tibial and peroneal veins are fully compressible and demonstrate normal flow on color doppler imaging. Superficial Vein: The greater saphenous vein is fully compressible. Popliteal Fossa: No popliteal cyst. IMPRESSION: Normal left lower extremity venous ultrasound. No deep vein thrombus. Dictated by Yasmany Leon MD @ 10/16/2023 10:01:19 PM (Electronically Signed) Labs on day of discharge: Labs from last 24 hours 10/19/23 05:53 WBC 11.40 H RBC 3.90 L Hgb 10.7 L Hct 33.3 L MCV 85 MCH 27 MCHC 32 Plt Count 251 Sodium 137 Potassium 3.3 L Chloride 104 Carbon Dioxide 24 Anion Gap 9 BUN 9 Creatinine 0.7 Estimated Creat Clear 112.66 Estimated GFR 112 Glucose 109 Calcium 8.2 L C-Reactive Protein 21.6 H Preliminary micro results at discharge 10/16/23 20:40 Blood Culture - Preliminary Blood NO GROWTH AFTER 48 HOURS 10/16/23 20:30 Blood Culture - Preliminary Blood NO GROWTH AFTER 48 HOURS Discharge Plan Discharge Disposition: Home, Self-Care Date of Admission: 10/16/23 23:10 Attending Provider on Discharge: Genna Okeefe Primary Care Provider: Jesus Manuel Ferraro Condition: Improved Anticipated Discharge Date/Time: 10/19/23 11:49 Discharge Medications: Continued lisinopril 20 mg tablet 20 mg PO DAILY ibuprofen 800 mg tablet 800 mg PO Q8H PRN (Reason: pain) buprenorphine-naloxone 12-3 mg film 2 film sublingual DAILY Qty: 56 2RF cephalexin 500 mg capsule 500 mg PO QID 10 Days Qty: 40 0RF Discharge Orders: Discharge Order (Routine); Ordered 10/19/23 Ordered By: Genna Okeefe Additional Instructions: Return for fever, worsening redness, swelling or pain of the left knee. Finish taking all of the cephalexin you have left at home. This should give you just over 10 days of antibiotics (from the time you started taking it). Try not to skip any doses. Consider taking an over the counter probiotic for a month to replenish your gut bacteria after being on antibiotics. Activity Level: Activity as Tolerated Discharge Diet: Regular Follow Up Appointments: Jesus Manuel Ferraro MD [Primary Care Provider] - (3-5 days) Provider,Not a Local [Referring] - Forms: [employer] Info Instructions
[2023-10-19] MEDS: cephALEXin 500 MG CAPSULE PO (11:50)
== END 2023-10-19 13:58 | disposition home or self-care (01) | DRG 603 ==
LOC: ED 21:14 → MEDSURG 22:12
PROVIDERS: Family Medicine; Admitting Provider Internal Medicine; Emergency Provider Family Medicine; PCP Surgery; Visit Provider Internal Medicine
DX: L03.116 Cellulitis of left lower limb (principal); I10 Essential (primary) hypertension; F11.90 Opioid use, unspecified, uncomplicated; M25.562 Pain in left knee
CPT/HCPCS: 36415; 80048; 80053; 83605; 85025; 85027; 86140; 87040; 87081; 93005; 93971; 99284; 99285; A9270; J0574; J0690; J1650; J1885; J2543; J3370; J7030; J7050

== ENCOUNTER 2024-12-27 17:04 | Emergency (ER) | payer OTHER, SELFPAY ==
--- OUTSIDE RECORDS SUMMARY | 2024-12-27 17:06 | XMS_ITS | Clinical Summary ---
Author Organization [facility] & [facility] Address [address] [place] [id number] Care Team Providers Care Card Painter Name Role Phone Jesus Manuel Ferraro MD Primary Care Provider +1- [phone] Allergies No known active allergies Medications Suboxone 12-3 mg sublingual film 09/14/2021 Act brianna cephalexin (KEFLEX) 500 mg capsule Take 500 mg by mouth four times daily. 10/14/2023 Active doxycycline 100 mg tabletIndication s:Cellulitis of left lower extremity Take 1 Tablet (100 mg) by mouth two times daily before meals. 20 Tablet 10/31/2023 Active ibuprofen (ADVIL; MOTRIN) 800 mg tabletIndication s:Lumbar foraminal stenosis TAKE 1 TABLET (800 MG) BY MOUTH EVERY 8 HOURS IF NEEDED FOR PAIN. 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 03/11/2016 Lumbar pain 11/25/2014 Resolved Problems Problem Noted Date Diagnosed Date Resolved Date Positive urine drug screen 12/18/2014 0 05/21/2019 Overview (12/18/2014): 12/2014. Concern for narcotic use outside of recorded, prescribed medications. Was not on contract at time. Notified by letter. Encounters Date Type Department Care Team Description 12/23/2024 Refill [facility] [address] [place] [address] Jesus Manuel Ferraro MD Refill Request (Ibuprofen) 12/21/2024 Refill [facility] [address] [place] [address] Jesus Manuel Ferraro MD Refill Request ( ibuprofen (ADVIL; MOTRIN) 800 mg tablet) 11/15/2024 Refill [facility] [address] [place] [address] Jesus Manuel Ferraro MD Refill Request (Ibuprofen, Lisinopril) 10/14/2024 Refill [facility] [address] [place] [address] Jesus Manuel Ferraro MD Refill Request (Ibuprofen) from Last 3 Months Immunizations Immunization Administration Dates Next Due COVID-19 VACCINE SPIKEVAX (M ODERNA 50MCG/0.5ML) 12YO+ PFS 09/02/2023 Influenza, IIV4 05/21/2019 Influenza, IIV4 (=>6mos) MDV 05/31/2023 Tdap 05/21/2019 Family History Medical History Relation Name Comments Diabetes Mother Heart Disease Mother Genetic Other 1. Father from gunshot incident.~2. Mother, CABG, DM. Cancer-colon No Family History Relation Name Status Comments Father Mother Other Social History Tobacco Use Types Packs/Day Years Used Date Smoking Tobacco: Former Cigarettes Q uit: 09/02/2014 Smokeless Tobacco: Never Tobacco Cessation:Counseling Given: Yes Alcohol Use Standard Drinks/Week Comments No 0 (1 standard drink = 0.6 oz pur e alcohol) Alcoholic Drinks/day: 0 PHQ-2 Answer Date Recorded PHQ-2 TOTAL SCORE 0 09/02/2023 Social Connections Answer Date Recorded Do you often feel lonely or isolated from those around you? 0 09/02/2023 Financial Resource Strain Answer Date R ecorded Difficulty of Paying Living Expenses 3 09/02/2023 Difficulty of Paying Living Expenses Not on file 09/02/2023 Food Insecurity Answer Date Recorded Do you worry your food will run out before you are able to buy more? 1 09/02/2023 Transportation Needs Answer Date Record ed Does lack of transportation keep you from medica l appointments? 1 09/02/2023 Does lack of transportation keep you from work, meetings or getting things that you need? 1 09/02/2023 Housing Stability Answer Date Recorded What is your housing situation today? 1 09/02/2023 Utilities Answer Date Recorded Do you have trouble paying f or utilities (for example, heat, electricity, water, phone)? 1 09/02/2023 Sex and Gender Information Value Date Recorded Sex Assigned at Not on file Legal Sex Male 7:05 AM CHIEF OPERATOR Gender Identity Not on file Sexual Orientation Not on file Occupation Industry Job Start Date Job End Date Disabled Not on file Not on file Not on file Obstetrics History Last Filed Vital Signs Vital Sign Reading Time Taken Comments Blood Pressure 151/82 10/22/2023 1:37 PM CHIEF OPERATOR Pulse 82 10/22/2023 1:37 PM CHIEF OPERATOR Temperature 36.6 C (97.8 F) 10/22/2023 1:37 PM CHIEF OPERATOR Respiratory Rate 20 07/27/2015 12:0 4 PM CHIEF OPERATOR Oxygen Saturation 100% 10/22/2023 1:37 PM CHIEF OPERATOR Inhaled Oxygen Concentration - - Weight 74.3 kg (163 lb 14.4 oz) 024 11:39 AM CHIEF OPERATOR Height 167.6 cm (5' 6) 09/02/2023 4:28 PM CHIEF OPERATOR Body Mass Index 26.45 09/02/2023 4:28 PM CHIEF OPERATOR Plan of Treatment Upcoming Encounters Date Type Department Care Team (Late st Contact Info) Description 01/11/2025 8:50 AM CDT Office Visit [facility] [address] [place] [address] Jesus Manuel Ferraro MD [address] [place] [address] Health Maintenance Due Date Last Done Comments Colonoscopy through age 75 2017 Pneumococcal series for age 50+ (1 of 1 - PCV) 2022 Zoster (shingles) series for age 50+ (1 of 2) 2022 COVID-19 vaccine series (2023- season) 2024 09/02/2023, 06/01/2022, 09/20/2021, Additional history exists BMI (ht and wt on same day) for age 18+ 09/02/2024 09/02/2023, 10/08/2021, 11/21/2020, Additional history exists Depression screening for age 12+ 09/02/2024 09/02/2023, 02/08/2022, 02/07/2022, Additional history exists Influenza Vaccine (Season Ended) 2025 05/31/20 23, 05/21/2019 Lipids for age 45-75 09/02/2028 09/02/2023, 11/21/2020, 05/21/2019, Additional history exists Tetanus booster 05/21/2029 05/21/2019 Tdap Completed 05/21/2019 HIV for age 15-65 Completed 09/02/2023 Hepatitis C screening for ag e 18-79 Completed 09/02/2023, 09/02/2023 Procedures Procedure Name Priority Date/Time Associated Diagnosis Comments ANTI HIV 1/2 Routine 09/02/2023 5:03 PM CHIEF OPERATOR Screening for HIV (human immunodeficiency virus) ANTI HCV Routine 09/02/2023 5:03 PM CHIEF OPERATOR Need for hepatitis C screening test LIPID PANEL Routine 09/02/2023 5:03 PM CHIEF OPERATOR Screening, lipid from Last 3 Months or Most Recently Relevant to Health Maintenance Results * (ABNORMAL) ANTI HCV (09/02/2023 5:03 PM CHIEF OPERATOR) HEPATITIS C ANTIBODY Reactive, Preliminary Positive(A) Non-React brianna 09/03/2023 2:26 PM CHIEF OPERATOR [facility] [employer] [facility] Comment:Presumptive evidence of antibodies to HCV. Reflexed to HCV RNA Quant (See separate report). Blood BLOOD SPECIMEN / Unknown Venipuncture / Unknown 09/02/2023 5:03 PM CHIEF OPERATOR 09/02/2023 5:03 PM CHIEF OPERATOR us Jesus Manuel Ferraro MD SEND OUTS Final Resu lt [facility] [address] [place] [address], [place] * ANTI HIV 1/2 [34688.0] (09/02/2023 5:03 PM CHIEF OPERATOR) HIV-1/HIV-2 SCREEN Non-Reacti ve Non-Reacti ve 09/03/2023 2:28 PM CHIEF OPERATOR [facility] Comment:HIV-1 p24 and HIV-1/ HIV-2 Ab Not Detected. Blood BLOOD SPECIMEN / Unknown Venipuncture / Unknown 09/02/2023 5:03 PM CHIEF OPERATOR 09/02/2023 5:03 PM CHIEF OPERATOR us Jesus Manuel Ferraro MD SEND OUTS Final Resu lt [facility] [address] [place] [address], [place] * (ABNORMAL) LIPID PANEL (09/02/2023 5:03 PM CHIEF OPERATOR) CHOLESTEROL,TOTAL 184 100 - 199 mg/dL 09/03/2023 3:48 PM CHIEF OPERATOR [facility] Comment: Cholesterol, Total Reference Ranges Desirable <200 mg/dL Borderline 200-239 mg/dL High >=240 mg/dL TRIGLYCERIDES 226(H) <150 mg/dL 09/03/2023 3:48 PM CHIEF OPERATOR [facility] HDL CHOLESTEROL 36(L) >40 mg/dL 3:48 PM CHIEF OPERATOR [facility] NON-HDL CHOLESTEROL 148(H) <145 mg/dl 09/03/2023 3:48 PM CHIEF OPERATOR [facility] CHOL/HDL RATIO 5.11(H) <4.50 09/03/2023 3:48 PM CHIEF OPERATOR [facility] LDL CHOLESTEROL 103 <=130 mg/dL 09/03/2023 3:48 PM CHIEF OPERATOR [facility] VLDL CHOLESTEROL 45(H) <=30 mg/dL 09/03/2023 3:48 PM CHIEF OPERATOR [facility] PROVIDER ORDERED STATUS RANDOM 09/03/2023 3:48 PM CHIEF OPERATOR [facility] Blood BLOOD SPECIMEN / Unknown Venipuncture / Unknown 09/02/2023 5:03 PM CHIEF OPERATOR 09/02/2023 5:03 PM CHIEF OPERATOR us Jesus Manuel Ferraro MD CHEMISTRY Final Resu lt [facility] [address] [place] [address], from Last 3 Months or Most Recently Relevant to Health Maintenance Care Teams Card Painter Relationship Specialty Start Date End Date Jesus Manuel Ferraro MD [address] [place] [address] PCP - General Family Practice 09/28/14
[2024-12-27 17:13] VITALS: BP 171/101; PULSE 86; RESP 16; TEMP 37.2; O2SAT 97; BMI 25.8
--- NOTE | 2024-12-27 18:12 | ED.BACK ---
HPI - Back Pain/Injury General Date Seen: 12/27/24 Chief Complaint: Back Injury/Pain Stated Complaint: Lower back pain Time Seen by Provider: 12/27/24 17:34 Source: patient Mode of arrival: ambulatory Limitations: no limitations History of Present Illness HPI Narrative: Patient is a 54-year-old male presenting to the emergency department for right lower back pain. States pain radiates down his right leg. Does have some mild lateral numbness associated with the pain. Denies any saddle anesthesia. Denies fevers, chills, urinary incontinence, bowel incontinence, urinary retention. States he has had this back pain for long time and has a known herniated disc. Has been doing well on 800 mg of ibuprofen but ran out of his prescription. States the 200 mg taking for it once does not help. Only the 800 mg tablet helps. States this is a chronic issue in feels just like his previous episodes. States he just wants the prescription for the ibuprofen. Denies any history of kidney disease. Related Data Home Medications ?Medication ?Instructions ?Recorded ?Confirmed ibuprofen 800 mg tablet 800 mg PO Q8H PRN pain 09/23/22 12/27/24 lisinopril 20 mg tablet 20 mg PO DAILY 09/23/22 12/27/24 Previous Rx's ?Medication ?Instructions ?Recorded buprenorphine 12 mg-naloxone 3 mg 2 film sublingual DAILY #60 ea 12/06/24 sublingual film ibuprofen 800 mg tablet 800 mg PO Q8H #60 tabs 12/27/24 Allergies Allergy/AdvReac Type Severity Reaction Status Date / Time No Known Allergies Allergy Verified 12/27/24 17:17 Review of Systems Status of ROS: Reports: 10 or more systems reviewed and unremarkable except as noted in History and below PFSH PFS Medical History Essential hypertension ?I10 - Essential (primary) hypertension (ICD-10) Opioid use disorder ?F11.90 - Opioid use, unspecified, uncomplicated (ICD-10) Social History What is your current living situation?: I presently have a place to live Problems where you live: no known problems Problems where you live details: n/a In the past 12 months, utilities in danger of being shut off: no In past 12 months, lack of transportation kept you from medical appts, meetings, work, or getting things needed for daily living: no In the past 12 mos, have been you worried that your food would run out before you had money to buy more?: never true In the past 12 mos, the food you bought just didn't last and you didn't have money to buy more?: never true Highest level of school completed/degree received: GED or equivalent Smoking Status: Former smoker Do you use any of these nicotine containing products: None Second hand tobacco smoke exposure: No How often do you have a drink containing alcohol: never AUDIT-C Alcohol total score: 0 Non-prescribed substance use: denies use Non-prescribed substance use details: 7 years sober Caffeine: Yes How often does anyone, including family, friends and others, physically hurt you: never How often does anyone, including family, friends and others, insult or talk down to you: never How often does anyone, including family, friends and others, threaten you with harm: never How often does anyone, including family, friends and others, scream or curse at you: never service: No Exam Narrative: Exam Narrative: Const: Well-nourished, Well-developed, in mild distress Eyes: PERRL, no conjunctival injection, and symmetrical lids HENT: Atraumatic external nose and ears. Moist mucous membranes. MSK:Extremities w/o deformity, Normal Active ROM, mild right paraspinal low back tenderness. No midline lumbar tenderness Skin: Warm, Dry. No rashes or lesions. Neuro: Normal Muscle tone, No focal neurological deficits. Psych: Awake, Alert, & Oriented x3. Appropriate mood and affect. Const: Vital Signs, click to edit/add: Vital Signs - 24 hr 12/27/24 17:13 Temperature 99.0 F Pulse Rate [Right Pulse Oximeter] 86 Respiratory Rate 16 Blood Pressure [Ri ght Upper Arm] 171/101 H Pulse Oximetry 97 Oxygen Delivery Me thod Room Air Course Vital Signs Vital signs: Initial Vital Signs Temperature 99.0 F 12/27/24 17:13 Temperature Source Temporal Artery Scan 12/27/24 17:13 Pulse Rate 86 12/27/24 17:13 Pulse Rhythm Regular 12/27/24 17:13 Pulse Strength 3+ Normal 12/27/24 17:13 Respiratory Rate 16 12/27/24 17:13 Blood Pressure 171/101 H 12/27/24 17:13 Blood Pressure Mean 124 H 12/27/24 17:13 Blood Pressure Position Sitting 12/27/24 17:13 Pulse Oximetry 97 12/27/24 17:13 Oxygen Delivery Method Room Air 12/27/24 17:13 Vital Signs Temperature 99.0 F 12/27/24 17:13 Pulse Rate 86 12/27/24 17:13 Respiratory Rate 16 12/27/24 17:13 Blood Pressure 171/101 H 12/27/24 17:13 Pulse Oximetry 97 12/27/24 17:13 Oxygen Delivery Method Room Air 12/27/24 17:13 Temperature 99.0 F 12/27/24 17:13 Pulse Rate 86 12/27/24 17:13 Respiratory Rate 16 12/27/24 17:13 Blood Pressure 171/101 H 12/27/24 17:13 Pulse Oximetry 97 12/27/24 17:13 Oxygen Delivery Method Room Air 12/27/24 17:13 MDM - Back Pain/Injury MDM Narrative Medical decision making narrative: Patient is a 54-year-old male presenting for right low back pain. This sounds like sciatica. It is his chronic pain and just wants her prescription for ibuprofen. Is having no signs of cauda equina. He is overall doing well. No history of kidney disease. I am fine given the prescription for ibuprofen as requested. Imaging is not necessary. Discharge Plan Discharge Clinical Impression: Sciatica Qualifiers: Laterality: right Qualified Code(s): M54.31 - Sciatica, right side Patient Disposition: Home, Self-Care Condition: Stable Instructions: Sciatica (ED) Additional Instructions: Take the ibuprofen as directed. Follow up with the primary care provider. Prescriptions: New ibuprofen 800 mg tablet 800 mg PO Q8H Qty: 60 0RF No Action lisinopril 20 mg tablet 20 mg PO DAILY ibuprofen 800 mg tablet 800 mg PO Q8H PRN (Reason: pain) buprenorphine-naloxone 12-3 mg film 2 film sublingual DAILY Qty: 60 2RF Follow Up/Referrals: Jesus Manuel Ferraro MD [Primary Care Provider] - Stand Alone Forms: [employer] Info Instructions
--- OUTSIDE RECORDS SUMMARY | 2024-12-27 18:14 | XMS_ITS | Clinical Summary ---
Author Organization [facility] & [facility] Address [address] [place] [address] Care Team Providers Care Magnetic Resonance Imaging Director Name Role Phone Jesus Manuel Ferraro MD Primary Care Provider +1- [phone] Allergies No known active allergies Medications Suboxone [...] Diagnosed Date Medication addiction in javier ssion ([facility]) - on suboxone per pain clinic. 03/11/2016 Lumbar pain 11/25/2014 Resolved Problems Problem Noted Date Diagnosed Date Resolved Date Positive urine drug screen 12/18/2014 0 05/21/2019 Overview (12/18/2014): 12/2014. Concern for narcotic use outside of recorded, prescribed medications. Was not on contract at time. Notified by letter. Encounters Date Type Department Care Team Description 12/23/2024 Refill [facility] [address] [place] [address] Jesus Manuel Ferraro MD Refill Request (Ibuprofen) 12/21/2024 Refill [facility] [address] [place] [address] Jesus Manuel Ferraro MD Refill Request ( ibuprofen (ADVIL; MOTRIN) 800 mg tablet) 11/15/2024 Refill [facility] [address] [place] [address] Jesus Manuel Ferraro MD Refill Request (Ibuprofen, Lisinopril) 10/14/2024 Refill [facility] [address] [place] [address] Jesus Manuel Ferarro MD Refill Request (Ibuprofen) from Last 3 [...] on file Legal Sex Male 7:05 AM MEDIA DEVELOPER Gender Identity Not on file Sexual Orientation Not on file Occupation Industry Job Start Date Job End Date Disabled Not on file Not on file Not on file Obstetrics History Last Filed Vital Signs Vital Sign Reading Time Taken Comments Blood Pressure 151/82 10/22/2023 1:37 PM MEDIA DEVELOPER Pulse 82 10/22/2023 1:37 PM MEDIA DEVELOPER Temperature 36.6 C (97.8 F) 10/22/2023 1:37 PM MEDIA DEVELOPER Respiratory Rate 20 07/27/2015 12:0 4 PM MEDIA DEVELOPER Oxygen Saturation 100% 10/22/2023 1:37 PM MEDIA DEVELOPER Inhaled Oxygen Concentration - - Weight 74.3 kg (163 lb 14.4 oz) 024 11:39 AM MEDIA DEVELOPER Height 167.6 cm (5' 6) 09/02/2023 4:28 PM MEDIA DEVELOPER Body Mass Index 26.45 09/02/2023 4:28 PM MEDIA DEVELOPER Plan of Treatment Upcoming Encounters Date Type Department Care Team (Late st Contact Info) Description 01/11/2025 8:50 AM CDT Office Visit [facility] [address] [place] [address] Jesus Manuel Ferraro MD [address] [place] [address] Health Maintenance Due Date Last Done Comments [...] ANTI HIV 1/2 Routine 09/02/2023 5:03 PM MEDIA DEVELOPER Screening for HIV (human immunodeficiency virus) ANTI HCV Routine 09/02/2023 5:03 PM MEDIA DEVELOPER Need for hepatitis C screening test LIPID PANEL Routine 09/02/2023 5:03 PM MEDIA DEVELOPER Screening, lipid from Last 3 Months or Most Recently Relevant to Health Maintenance Results * (ABNORMAL) ANTI HCV (09/02/2023 5:03 PM MEDIA DEVELOPER) HEPATITIS C ANTIBODY Reactive, Preliminary Positive(A) Non-React brianna 09/03/2023 2:26 PM MEDIA DEVELOPER [facility] [email or web address] [facility] Comment:Presumptive evidence of antibodies to HCV. Reflexed to HCV RNA Quant (See separate report). Blood BLOOD SPECIMEN / Unknown Venipuncture / Unknown 09/02/2023 5:03 PM MEDIA DEVELOPER 09/02/2023 5:03 PM MEDIA DEVELOPER us Jesus Manuel Ferraro MD SEND OUTS Final Resu lt [facility] [address] [place] [address], [place] * ANTI HIV 1/2 [26613.0] (09/02/2023 5:03 PM MEDIA DEVELOPER) HIV-1/HIV-2 SCREEN Non-Reacti ve Non-Reacti ve 09/03/2023 2:28 PM MEDIA DEVELOPER [facility] Comment:HIV-1 p24 and HIV-1/ HIV-2 Ab Not Detected. Blood BLOOD SPECIMEN / Unknown Venipuncture / Unknown 09/02/2023 5:03 PM MEDIA DEVELOPER 09/02/2023 5:03 PM MEDIA DEVELOPER us Jesus Manuel Ferraro MD SEND OUTS Final Resu lt [facility] [address] [place] [address], [place] * (ABNORMAL) LIPID PANEL (09/02/2023 5:03 PM MEDIA DEVELOPER) CHOLESTEROL,TOTAL 184 100 - 199 mg/dL 09/03/2023 3:48 PM MEDIA DEVELOPER [facility] Comment: Cholesterol, Total Reference Ranges Desirable <200 mg/dL Borderline 200-239 mg/dL High >=240 mg/dL TRIGLYCERIDES 226(H) <150 mg/dL 09/03/2023 3:48 PM MEDIA DEVELOPER [facility] HDL CHOLESTEROL 36(L) >40 mg/dL 3:48 PM MEDIA DEVELOPER [facility] NON-HDL CHOLESTEROL 148(H) <145 mg/dl 09/03/2023 3:48 PM MEDIA DEVELOPER [facility] CHOL/HDL RATIO 5.11(H) <4.50 09/03/2023 3:48 PM MEDIA DEVELOPER [facility] LDL CHOLESTEROL 103 <=130 mg/dL 09/03/2023 3:48 PM MEDIA DEVELOPER [facility] VLDL CHOLESTEROL 45(H) <=30 mg/dL 09/03/2023 3:48 PM MEDIA DEVELOPER [facility] PROVIDER ORDERED STATUS RANDOM 09/03/2023 3:48 PM MEDIA DEVELOPER [facility] Blood BLOOD SPECIMEN / Unknown Venipuncture / Unknown 09/02/2023 5:03 PM MEDIA DEVELOPER 09/02/2023 5:03 PM MEDIA DEVELOPER us Jesus Manuel Ferraro MD CHEMISTRY Final Resu lt [facility] [address] [place] [address], from Last 3 Months or Most Recently Relevant to Health Maintenance Care Teams Magnetic Resonance Imaging Director Relationship Specialty Start Date End Date Jesus Manuel Ferraro MD [address] [place] [address] PCP - General Family Practice 09/28/14
== END 2024-12-27 18:22 | disposition home or self-care (01) ==
PROVIDERS: Emergency Provider Student in an Organized Health Care Education/Training Program; PCP Surgery
DX: M54.31 Sciatica, right side (principal)
CPT/HCPCS: 99282; 99283